=== PATIENT | female | born 2000 | race American Indian/Alaskan Native ===

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

== ENCOUNTER 2020-08-26 18:56 | Emergency (ER) | payer SELFPAY ==
[2020-08-26 19:44] VITALS: BP 112/77
--- NOTE | 2020-08-26 20:58 | XRay Report ---
RIGHT HAND 3 VIEWS 2004 INDICATION: right index and middle fingers injury COMPARISON: None available. FINDINGS: Negative study Signer Name: Paulino Perez MD Signed: 08/26/2020 8:54 PM Workstation Name: [id number]
[2020-08-26] MEDS ORDERED: IBUPROFEN 600 MG TAB PO ONE (21:54)
--- NOTE | 2020-08-26 21:59 | Emergency Department Report ---
ED Upper Extremity Inj HPI - General Chief Complaint: Extremity Injury, Upper Stated Complaint: FINGER INJURY Source: patient Mode of arrival: Ambulatory Limitations: No Limitations - History of Present Illness Initial Comments: Patient is a 20-year-old -Congolese female with no past medical history who presents to the ED with complaint of acute onset persistent severe right middle and ring finger pain with swelling after the right hand was hit by a door as it closed on the right hand about 4 hours ago. Patient states that she is unable to perform any active range of motion of the right middle and ring fingers because of pain. Patient denies numbness and tingling or weakness of right hand, dizziness, syncope, chest pain, shortness of breath, fall, nausea and vomiting or syncope. MD Complaint: Injury to:: right, hand (right), finger (middle finger) -: Sudden, hour(s) (4) Other Extremity Injury: Fingers: Right (middle finger; ring finger) Other Injuries: none Handedness: right Place: home Severity scale (0 -10): 7 Improves With: none Worsens With: movement of extremity Context: direct blow, injury Associated Symptoms: denies other symptoms. denies: weakness, numbness, neck pain, suspects foreign body, nausea/vomiting, heard/felt popping sensat - Related Data Previous Rx's Medication Instructions Recorded Last Taken Type Acetaminophen [Non-Aspirin Extra 500 mg PO Q6HR PRN #30 tablet 09/22/19 Unknown Rx Strength] Mandy Root [Mandy] 250 mg PO QID PRN #30 capsule 09/22/19 Unknown Rx Vit-Fe Fumar-FA [ 1 tab PO QDAY #30 tablet 09/22/19 Unknown Rx Vitamin] Ibuprofen [Motrin 800 MG tab] 800 mg PO Q8HR PRN #10 tablet 09/25/19 Unknown Rx Methylergonovine [Methergine] 0.2 mg PO Q8HR #6 tablet 09/25/19 Unknown Rx traMADoL [Ultram] 50 mg PO Q6HR PRN #10 tablet 09/25/19 Unknown Rx Bacitracin Zinc 1 applic TP TID #1 oint...g. 10/25/19 Unknown Rx Triamcinolone 0.5% [Kenalog 0.5% 1 applic TP TID #2 tube 10/25/19 Unknown Rx CREAM] Cyclobenzaprine HCl [Flexeril 5 MG 5 mg PO Q12H PRN #10 tab 08/26/20 Unknown Rx TAB] Ibuprofen [Motrin] 600 mg PO Q8H PRN #24 tablet 08/26/20 Unknown Rx Allergies Allergy/AdvReac Type Severity Reaction Status Date / Time cat dander Allergy Unknown Verified 05/07/20 12:41 dog dander Allergy Unknown Verified 05/07/20 12:41 soy Allergy Unknown Verified 05/07/20 12:41 strawberry Allergy Unknown Verified 05/07/20 12:41 ED Review of Systems ROS: Stated complaint: FINGER INJURY Other details as noted in HPI Constitutional: denies: chills, fever Eyes: denies: eye pain, eye discharge, vision change ENT: denies: ear pain, throat pain Respiratory: denies: cough, shortness of breath, wheezing Cardiovascular: denies: chest pain, palpitations Endocrine: no symptoms reported Gastrointestinal: denies: abdominal pain, nausea, diarrhea Genitourinary: denies: urgency, dysuria, discharge Musculoskeletal: arthralgia (Right hand, right middle and ring finger pain). denies: back pain, joint swelling, myalgia Skin: denies: rash, lesions Neurological: denies: headache, weakness, paresthesias Psychiatric: denies: anxiety, depression Hematological/Lymphatic: denies: easy bleeding, easy bruising ED Past Medical Hx - Past Medical History Previous Medical History?: Yes Hx Asthma: Yes Additional medical history: left knee pain, Eczema - Surgical History Past Surgical History?: No - Social History Smoking Status: Never Smoker Substance Use Type: None - Medications Home Medications: Home Medications Medication Instructions Recorded Confirmed Last Taken Type Acetaminophen [Non-Aspirin Extra 500 mg PO Q6HR PRN #30 tablet 09/22/19 Unknown Rx Strength] Mandy Root [Mandy] 250 mg PO QID PRN #30 capsule 09/22/19 Unknown Rx Vit-Fe Fumar-FA [ 1 tab PO QDAY #30 tablet 09/22/19 Unknown Rx Vitamin] Ibuprofen [Motrin 800 MG tab] 800 mg PO Q8HR PRN #10 tablet 09/25/19 Unknown Rx Methylergonovine [Methergine] 0.2 mg PO Q8HR #6 tablet 09/25/19 Unknown Rx traMADoL [Ultram] 50 mg PO Q6HR PRN #10 tablet 09/25/19 Unknown Rx Bacitracin Zinc 1 applic TP TID #1 oint...g. 10/25/19 Unknown Rx Triamcinolone 0.5% [Kenalog 0.5% 1 applic TP TID #2 tube 10/25/19 Unknown Rx CREAM] Cyclobenzaprine HCl [Flexeril 5 MG 5 mg PO Q12H PRN #10 tab 08/26/20 Unknown Rx TAB] Ibuprofen [Motrin] 600 mg PO Q8H PRN #24 tablet 08/26/20 Unknown Rx ED Physical Exam - General Limitations: No Limitations General appearance: alert, in no apparent distress - Head Head exam: Present: atraumatic, normocephalic, normal inspection - Eye Eye exam: Present: normal appearance, PERRL, EOMI Pupils: Present: normal accommodation - ENT ENT exam: Present: normal exam, normal orophraynx, mucous membranes moist, TM's normal bilaterally, normal external ear exam - Neck Neck exam: Present: normal inspection, full ROM - Respiratory Respiratory exam: Present: normal lung sounds bilaterally. Absent: respiratory distress, wheezes, rales, stridor, chest wall tenderness, accessory muscle use - Cardiovascular Cardiovascular Exam: Present: regular rate, normal rhythm, normal heart sounds. Absent: systolic murmur, diastolic murmur, rubs, gallop - GI/Abdominal GI/Abdominal exam: Present: soft, normal bowel sounds. Absent: tenderness, guarding, rebound, hyperactive bowel sounds, hypoactive bowel sounds - Extremities Exam Extremities exam: Present: normal inspection, full ROM, tenderness (Palpable distal right middle and fourth finger tenderness with mild ecchymosis of the right middle finger nailbed and mild swelling), normal capillary refill, joint swelling. Absent: calf tenderness - Back Exam Back exam: Present: normal inspection, full ROM. Absent: tenderness, CVA tenderness (R), CVA tenderness (L), muscle spasm, paraspinal tenderness - Neurological Exam Neurological exam: Present: alert, oriented X3, CN II-XII intact, normal gait, reflexes normal - Psychiatric Psychiatric exam: Present: normal affect, normal mood - Skin Skin exam: Present: warm, dry, intact, normal color. Absent: rash ED Course Vital Signs 08/26/20 19:34 Temperature 99.0 F Pulse Rate 76 Respiratory 18 Rate Blood Pressure 112/77 O2 Sat by Pulse 100 Oximetry ED Medical Decision Making - Radiology Data Radiology results: report reviewed, image reviewed Findings [facility], [place] [address] [place] [address] XRay Report Signed Patient: JOS DE LEON MR#: [id number] : 2000 Acct:[id number] Age/Sex: 20 / F ADM Date: 08/26/20 Loc: ED Attending Dr: Ordering Physician: MARGY DYSON MD Date of Service: 08/26/20 Procedure(s): XR hand 3+V RT Accession Number(s): [id number] cc: MARGY DYSON MD Fluoro Time In Minutes: RIGHT HAND 3 VIEWS 2004 INDICATION: right index and middle fingers injury COMPARISON: None available. FINDINGS: Negative study Signer Name: Paulino Perez MD Signed: 08/26/2020 8:54 PM Workstation Name: [id number] Transcribed By: GJ Dictated By: Paulino Perez MD Electronically Authenticated By: Paulino Perez MD Signed Date/Time: 08/26/202053 DD/ 52 TD/TT: - Medical Decision Making This is a 20-year-old -Congolese female with no past medical history who presents to the ED with complaint of acute onset persistent severe right middle and ring finger pain with swelling after the right hand was hit by a door as it closed on the right hand about 4 hours ago. Patient states that she is unable to perform any active range of motion of the right middle and ring fingers because of pain. In the ED, patient is alert and oriented x3 and is not in distress. Patient was treated for pain in the ED and right hand x-ray showed no acute fractures or subluxations of the right hand, right middle or right ring fingers. The right middle finger was splinted with a finger splint and the patient was discharged home on pain medications and advised to follow-up with her primary care physician in 5 to 7 days for reevaluation or return to the ED immediately if symptoms get worse. - Differential Diagnosis Hand fracture; fingers fracture; hand contusion; finger sprain; Critical care attestation.: If time is entered above; I have spent that time in minutes in the direct care of this critically ill patient, excluding procedure time. ED Disposition Clinical Impression: Contusion of right hand including fingers Qualifiers: Encounter type: initial encounter Qualified Code(s): S60.221A - Contusion of right hand, initial encounter; S60.00XA - Contusion of unspecified finger without damage to nail, initial encounter Sprain of interphalangeal joint of right middle finger Qualifiers: Encounter type: initial encounter Qualified Code(s): S63.632A - Sprain of interphalangeal joint of right middle finger, initial encounter Sprain of right ring finger Qualifiers: Encounter type: initial encounter Sprain of finger site: interphalangeal joint Qualified Code(s): S63.634A - Sprain of interphalangeal joint of right ring finger, initial encounter Disposition: TO HOME OR SELFCARE Is pt being admited?: No Does the pt Need Aspirin: No Condition: Stable Instructions: Finger Sprain (ED), Hand Sprain (ED), Contusion in Adults (ED) Additional Instructions: The right hand x-ray shows no acute fractures or subluxations. Take medication with food, drink plenty of fluids and follow-up with your primary care physician in 7 to 10 days for reevaluation. Return to the ED immediately if symptoms get worse. Prescriptions: Cyclobenzaprine HCl [Flexeril 5 MG TAB] 5 mg PO Q12H PRN #10 tab PRN Reason: Muscle Spasm Ibuprofen [Motrin] 600 mg PO Q8H PRN #24 tablet PRN Reason: Pain Referrals: [facility] [Provider Group] - 3-5 Days Time of Disposition: 22:01 Print Language: NORTH KOREAN
== END 2020-08-26 22:45 | disposition home or self-care (01) ==
LOC: ED 18:56
DX: S60.221A Contusion of right hand, initial encounter (principal); S63.632A Sprain of interphalangeal joint of right middle finger, initial encounter; S63.634A Sprain of interphalangeal joint of right ring finger, initial encounter; J45.909 Unspecified asthma, uncomplicated; Z79.899 Other long term (current) drug therapy; Z91.018 Allergy to other foods; Z91.048 Other nonmedicinal substance allergy status; W23.0XXA Caught, crushed, jammed, or pinched between moving objects, initial encounter; Y93.89 Activity, other specified; Y92.89 Other specified places as the place of occurrence of the external cause; Y99.8 Other external cause status

== ENCOUNTER 2020-10-31 18:28 | Emergency (ER) | payer SELFPAY ==
--- NOTE | 2020-10-31 19:23 | Event Note ---
ED Screening Note ED Screening Note: abd pain for a week +nausea no v/d no dysuria normal BM today no fever no blood in stool PMHx asthma no allergies to meds LNMP: currently on depo, has not missed any injections This initial assessment/diagnostic orders/clinical plan/treatment(s) is/are subject to change based on patients health status, clinical progression and re- assessment by fellow clinical providers in the ED. Further treatment and workup at subsequent clinical providers discretion. Patient/guardian urged not to elope from the ED as their condition may be serious if not clinically assessed and managed. Initial orders include: labs, ua, urine preg
[2020-10-31 19:35] VITALS: BP 118/78
[2020-10-31 19:55] LABS: Basophils % (Auto) 0.4 % (0.0-1.8); Eosinophils # (Auto) 0.1 K/mm3 (0.0-0.4); Eosinophils % (Auto) 1.9 % (0.0-4.3); Hematocrit 41.9 % (30.3-42.9); Hemoglobin 13.7 gm/dl (10.1-14.3); Lymphocytes # (Auto) 2.6 K/mm3 (1.2-5.4); Lymphocytes % (Auto) 34.6 % (13.4-35.0); Mean Corpuscular HGB Conc 33 % (30-34); Mean Corpuscular Volume 85 fl (79-97); Monocytes # (Auto) 0.6 K/mm3 (0.0-0.8); Monocytes % (Auto) 7.6 % (0.0-7.3); Platelet Count 162 K/mm3 (140-440); Red Blood Count 4.93 M/mm3 (3.65-5.03); Red Cell Distribution Width 14.2 % (13.2-15.2)
[2020-10-31 20:24] LABS: Alanine Aminotransferase 12 units/L (7-56); Albumin 4.5 g/dL (3.9-5); BUN/Creatinine Ratio 16; Blood Urea Nitrogen 13 mg/dL (7-17); Calcium 9.7 mg/dL (8.4-10.2); Hemolysis Index 17
[2020-10-31] MEDS ORDERED: SODIUM CHLORIDE 0.9% 1000 ML 1,000 ML IV ONE (21:39)
[2020-10-31] MEDS ORDERED: MORPHINE 2 MG/1 ML INJ IV ONE (21:39)
[2020-10-31] MEDS ORDERED: FAMOTIDINE 20 MG/2 ML INJ IV ONE (21:39)
[2020-10-31] MEDS ORDERED: ONDANSETRON 4 MG/2 ML INJ IV ONE (21:39)
[2020-10-31 22:21] LABS: Bacteria,Urine 1+ /HPF (Negative); Bilirubin,Urine NEG (Negative); Blood,Urine NEG (Negative); Color,Urine Yellow (Yellow); Mucus,Urine FEW /HPF; Protein,Urine <15 mg/dL mg/dL (Negative)
[2020-10-31 22:31] LABS: HCG Qualitative,Urine Negative (Negative)
--- NOTE | 2020-10-31 22:51 | Emergency Department Report ---
ED Abdominal Pain HPI - General Chief Complaint: Abdominal Pain Stated Complaint: STOMACH PAIN Time Seen by Provider: 10/31/20 19:21 Source: patient Mode of arrival: Ambulatory Limitations: No Limitations - History of Present Illness Initial Comments: Patient is a A1 20-year-old -Aust[place] female with history of asthma presents to the ED with complaint of acute onset persistent diffuse abdominal pain intermittently with nausea and vomiting, for the last 1 week. Patient states that in the last 2 days the pain has worsened. Patient describes the pain as crampy sharp and intermittent. Patient denies dysuria, urinary frequency and urgency, fever, chills, diarrhea, dizziness, syncope, vaginal bleeding, vaginal discharge, chest pain, shortness of breath, sore throat or headache or hematochezia. MD Complaint: abdominal pain, other (nausea and vomiting) -: Sudden, week(s) (1) Location: diffuse Radiation: none Migration to: no migration Severity scale (0 -10): 6 Quality: cramping, aching Improves With: nothing Worsens With: nothing Associated Symptoms: denies other symptoms, nausea, vomiting, anorexia. denies: diarrhea, fever, chills, dysuria, hematemesis, hematochezia, melena, syncope, other - Related Data LMP (females 10-50): unknown Previous Rx's Medication Instructions Recorded Last Taken Type Acetaminophen [Non-Aspirin Extra 500 mg PO Q6HR PRN #30 tablet 09/22/19 Unknown Rx Strength] Mandy Root [Mandy] 250 mg PO QID PRN #30 capsule 09/22/19 Unknown Rx Vit-Fe Fumar-FA [ 1 tab PO QDAY #30 tablet 09/22/19 Unknown Rx Vitamin] Ibuprofen [Motrin 800 MG tab] 800 mg PO Q8HR PRN #10 tablet 09/25/19 Unknown Rx Methylergonovine [Methergine] 0.2 mg PO Q8HR #6 tablet 09/25/19 Unknown Rx traMADoL [Ultram] 50 mg PO Q6HR PRN #10 tablet 09/25/19 Unknown Rx Bacitracin Zinc 1 applic TP TID #1 oint...g. 10/25/19 Unknown Rx Triamcinolone 0.5% [Kenalog 0.5% 1 applic TP TID #2 tube 10/25/19 Unknown Rx CREAM] Cyclobenzaprine HCl [Flexeril 5 MG 5 mg PO Q12H PRN #10 tab 08/26/20 Unknown Rx TAB] Ibuprofen [Motrin] 600 mg PO Q8H PRN #24 tablet 08/26/20 Unknown Rx Dicyclomine [Bentyl] 20 mg PO Q6H PRN #30 tablet 10/31/20 Unknown Rx Famotidine [Pepcid] 20 mg PO BID #24 tablet 10/31/20 Unknown Rx Ondansetron [Zofran Odt] 4 mg PO Q6HR PRN #15 tab.rapdis 10/31/20 Unknown Rx cephALEXin [Keflex] 500 mg PO Q6HR #30 capsule 10/31/20 Unknown Rx Allergies Allergy/AdvReac Type Severity Reaction Status Date / Time cat dander Allergy Unknown Verified 05/07/20 12:41 dog dander Allergy Unknown Verified 05/07/20 12:41 soy Allergy Unknown Verified 05/07/20 12:41 strawberry Allergy Unknown Verified 05/07/20 12:41 ED Review of Systems ROS: Stated complaint: STOMACH PAIN Other details as noted in HPI Constitutional: denies: chills, fever Eyes: denies: eye pain, eye discharge, vision change ENT: denies: ear pain, throat pain Respiratory: cough. denies: shortness of breath, wheezing Cardiovascular: denies: chest pain, palpitations Endocrine: no symptoms reported Gastrointestinal: abdominal pain, nausea, vomiting. denies: diarrhea Genitourinary: denies: urgency, dysuria, discharge Musculoskeletal: denies: back pain, joint swelling, arthralgia Skin: denies: rash, lesions Neurological: denies: headache, weakness, paresthesias Psychiatric: denies: anxiety, depression Hematological/Lymphatic: denies: easy bleeding, easy bruising ED Past Medical Hx - Past Medical History Previous Medical History?: Yes Hx Asthma: Yes Additional medical history: left knee pain, Eczema - Surgical History Past Surgical History?: No - Social History Smoking Status: Never Smoker Substance Use Type: None - Medications Home Medications: Home Medications Medication Instructions Recorded Confirmed Last Taken Type Acetaminophen [Non-Aspirin Extra 500 mg PO Q6HR PRN #30 tablet 09/22/19 Unknown Rx Strength] Mandy Root [Mandy] 250 mg PO QID PRN #30 capsule 09/22/19 Unknown Rx Vit-Fe Fumar-FA [ 1 tab PO QDAY #30 tablet 09/22/19 Unknown Rx Vitamin] Ibuprofen [Motrin 800 MG tab] 800 mg PO Q8HR PRN #10 tablet 09/25/19 Unknown Rx Methylergonovine [Methergine] 0.2 mg PO Q8HR #6 tablet 09/25/19 Unknown Rx traMADoL [Ultram] 50 mg PO Q6HR PRN #10 tablet 09/25/19 Unknown Rx Bacitracin Zinc 1 applic TP TID #1 oint...g. 10/25/19 Unknown Rx Triamcinolone 0.5% [Kenalog 0.5% 1 applic TP TID #2 tube 10/25/19 Unknown Rx CREAM] Cyclobenzaprine HCl [Flexeril 5 MG 5 mg PO Q12H PRN #10 tab 08/26/20 Unknown Rx TAB] Ibuprofen [Motrin] 600 mg PO Q8H PRN #24 tablet 08/26/20 Unknown Rx Dicyclomine [Bentyl] 20 mg PO Q6H PRN #30 tablet 10/31/20 Unknown Rx Famotidine [Pepcid] 20 mg PO BID #24 tablet 10/31/20 Unknown Rx Ondansetron [Zofran Odt] 4 mg PO Q6HR PRN #15 tab.rapdis 10/31/20 Unknown Rx cephALEXin [Keflex] 500 mg PO Q6HR #30 capsule 10/31/20 Unknown Rx ED Physical Exam - General Limitations: No Limitations General appearance: alert, in no apparent distress - Head Head exam: Present: atraumatic, normocephalic, normal inspection - Eye Eye exam: Present: normal appearance, PERRL, EOMI Pupils: Present: normal accommodation - ENT ENT exam: Present: normal exam, normal orophraynx, mucous membranes moist, TM's normal bilaterally, normal external ear exam - Neck Neck exam: Present: normal inspection, full ROM - Respiratory Respiratory exam: Present: normal lung sounds bilaterally. Absent: respiratory distress, wheezes, rales, rhonchi, chest wall tenderness, decreased breath sounds - Cardiovascular Cardiovascular Exam: Present: regular rate, normal rhythm, normal heart sounds. Absent: systolic murmur, diastolic murmur, rubs, gallop - GI/Abdominal GI/Abdominal exam: Present: soft, tenderness (Palpable mild diffuse abdominal tenderness), normal bowel sounds. Absent: guarding, rebound, hyperactive bowel sounds, organomegaly, mass - Bi-manual exam: Present: other (Pelvic exam deferred, patient declined) - Extremities Exam Extremities exam: Present: normal inspection, full ROM, normal capillary refill - Back Exam Back exam: Present: normal inspection, full ROM. Absent: tenderness, CVA tenderness (R), CVA tenderness (L), muscle spasm, paraspinal tenderness, vertebral tenderness - Neurological Exam Neurological exam: Present: alert, oriented X3, CN II-XII intact, normal gait, reflexes normal - Psychiatric Psychiatric exam: Present: normal affect, normal mood - Skin Skin exam: Present: warm, dry, intact, normal color. Absent: rash ED Course Vital Signs 10/31/20 19:00 Temperature 98.2 F Pulse Rate 67 Respiratory 20 Rate Blood Pressure 118/78 O2 Sat by Pulse 100 Oximetry ED Medical Decision Making - Lab Data Result diagrams: 10/31/20 19:39 10/31/20 19:39 - Medical Decision Making This is a A1 20-year-old -[place] female with history of asthma presents to the ED with complaint of acute onset persistent diffuse abdominal pain intermittently with nausea and vomiting, for the last 1 week. Patient states that in the last 2 days the pain has worsened. Patient describes the pain as crampy sharp and intermittent. In the ED, patient is alert and oriented x3 and is not in distress. Lab test results were reviewed and are all nonactionable except for significant urinary tract infection in urinalysis. Patient is hemodynamically stable. Patient declined any imaging tests because of fear of needles and even declined any injection in the ED. Patient therefore declined abdomen pelvis CT scan with contrast and opted to sign out AMA from the ED. Patient was however given a prescriptions for pain medication and antibiotics for her UTI. Patient was advised to return to the ED immediately if symptoms get worse, otherwise follow-up with her primary care physician in 3 to 5 days for reevaluation. - Differential Diagnosis Gastroenteritis; UTI; Appendicitis; Ovarian cyst; Gallstones; Gastritis Critical care attestation.: If time is entered above; I have spent that time in minutes in the direct care of this critically ill patient, excluding procedure time. ED Disposition Clinical Impression: Acute urinary tract infection Abdominal pain Qualifiers: Abdominal location: generalized Qualified Code(s): R10.84 - Generalized abdominal pain Nausea & vomiting Qualifiers: Vomiting type: unspecified Vomiting Intractability: unspecified Qualified Code(s): R11.2 - Nausea with vomiting, unspecified Disposition: DC-07 LEFT AGAINST MED ADVICE Is pt being admited?: No Does the pt Need Aspirin: No Condition: Undetermined Instructions: Abdominal Pain (ED), Abdominal Pain, Adult, [id number], Nausea and Vomiting, Adult, [id number], Urinary Tract Infection, Adult Additional Instructions: Lab test results show acute urinary tract infection. Therefore take medication as advised, drink plenty of fluids and follow-up with your primary care physician in 3 to 5 days for reevaluation. Return to the ED immediately if symptoms get worse. Prescriptions: Dicyclomine [Bentyl] 20 mg PO Q6H PRN #30 tablet PRN Reason: Abdominal pain cephALEXin [Keflex] 500 mg PO Q6HR #30 capsule Famotidine [Pepcid] 20 mg PO BID #24 tablet Ondansetron [Zofran Odt] 4 mg PO Q6HR PRN #15 tab.rapdis PRN Reason: Nausea Referrals: [facility] [Provider Group] - 3-5 Days Time of Disposition: 22:52 Print Language: ROMANIAN
== END 2020-10-31 23:07 | disposition left against medical advice (07) ==
LOC: ED 18:28
DX: N39.0 Urinary tract infection, site not specified (principal)
CPT/HCPCS: 36415; 80053; 81001; 81025; 83690; 85025; 87086; 99283; J2270; J2405; J7030

== ENCOUNTER 2020-11-16 00:08 | Emergency (ER) | payer SELFPAY ==
[2020-11-16] MEDS ORDERED: RABIES IMMUNE GLOBULIN P/F 300 UNIT/ML INJ 5 ML IM ONE (03:42)
[2020-11-16] MEDS ORDERED: RABIES VACCINE, HUMAN DIPLOID/PF 2.5 UNIT/ML VIAL IM ONE (03:42)
[2020-11-16] MEDS ORDERED: HYDROcodone/ACETAMINOPHEN 10-325MG TAB PO ONE (03:43)
[2020-11-16] MEDS ORDERED: DIPHtheria,PERTUSSIS(ACELL),TETANUS VACCINE/PF 0.5 ML VIAL IM ONE (03:43)
--- NOTE | 2020-11-16 04:44 | XRay Report ---
Left femur-4 views INDICATION: dog bite r/o foreign body. COMPARISON: None. IMPRESSION: Minimal soft tissue swelling overlying left hip with no acute fracture. Normal alignmen t. Signer Name: Fred Oro MD Signed: 11/16/2020 4:40 AM Workstation Name: [id number]
--- NOTE | 2020-11-16 05:46 | Emergency Department Report ---
ED Animal Bite HPI - General Chief Complaint: Animal Bite Stated Complaint: DOG BITE Time Seen by Provider: 11/16/20 03:30 Source: patient Mode of arrival: Ambulatory Limitations: No Limitations - History of Present Illness Initial Comments: This is a 20-year-old female brought by mother nontoxic, well nourished in appearance, no acute signs of distress presents to the ED with c/o of dog bite to left thigh that occurred this morning. Patient does know the dog. Patient denies any head trauma or any other trauma. PAtient denies any information on v accines. Patient states unknown last tetanus. Patient denies any fever, chills, nausea, vomiting, headache, stiff neck. Patient denies any allergies or significant past medical history. Patient stated animal control are notified. MD Complaint: animal bite -: This morning Left: Leg Animal: dog Animal Control Notified: Yes Mechanism: bite Severity scale (0 -10): 8 Context: unprovoked Associated Symptoms: none. denies: erythema, discharge from wound, bleeding, fever, chills, rash, loss of consciousness, cough, headache, diaphoresis, shortness of breath - Related Data Patient Tetanus UTD: No Previous Rx's Medication Instructions Recorded Last Taken Type Acetaminophen [Non-Aspirin Extra 500 mg PO Q6HR PRN #30 tablet 09/22/19 Unknown Rx Strength] Mandy Root [Mandy] 250 mg PO QID PRN #30 capsule 09/22/19 Unknown Rx Vit-Fe Fumar-FA [ 1 tab PO QDAY #30 tablet 09/22/19 Unknown Rx Vitamin] Ibuprofen [Motrin 800 MG tab] 800 mg PO Q8HR PRN #10 tablet 09/25/19 Unknown Rx Methylergonovine [Methergine] 0.2 mg PO Q8HR #6 tablet 09/25/19 Unknown Rx traMADoL [Ultram] 50 mg PO Q6HR PRN #10 tablet 09/25/19 Unknown Rx Bacitracin Zinc 1 applic TP TID #1 oint...g. 10/25/19 Unknown Rx Triamcinolone 0.5% [Kenalog 0.5% 1 applic TP TID #2 tube 10/25/19 Unknown Rx CREAM] Cyclobenzaprine HCl [Flexeril 5 MG 5 mg PO Q12H PRN #10 tab 08/26/20 Unknown Rx TAB] Ibuprofen [Motrin] 600 mg PO Q8H PRN #24 tablet 08/26/20 Unknown Rx Dicyclomine [Bentyl] 20 mg PO Q6H PRN #30 tablet 10/31/20 Unknown Rx Famotidine [Pepcid] 20 mg PO BID #24 tablet 10/31/20 Unknown Rx Ondansetron [Zofran Odt] 4 mg PO Q6HR PRN #15 tab.rapdis 10/31/20 Unknown Rx cephALEXin [Keflex] 500 mg PO Q6HR #30 capsule 10/31/20 Unknown Rx Amoxicillin/K Clav Tab [Augmentin 1 tab PO Q12HR #20 tab 11/16/20 Unknown Rx 875 mg] Naproxen 500 mg PO Q12H PRN #12 tablet 11/16/20 Unknown Rx Allergies Allergy/AdvReac Type Severity Reaction Status Date / Time cat dander Allergy Unknown Verified 05/07/20 12:41 dog dander Allergy Unknown Verified 05/07/20 12:41 soy Allergy Unknown Verified 05/07/20 12:41 strawberry Allergy Unknown Verified 05/07/20 12:41 ED Review of Systems ROS: Stated complaint: DOG BITE Other details as noted in HPI Comment: All other systems reviewed and negative Constitutional: denies: chills, fever Eyes: denies: eye pain, eye discharge, vision change ENT: denies: ear pain, throat pain Respiratory: denies: cough, shortness of breath, wheezing Cardiovascular: denies: chest pain, palpitations Endocrine: no symptoms reported Gastrointestinal: denies: abdominal pain, nausea, diarrhea Genitourinary: denies: urgency, dysuria, discharge Musculoskeletal: denies: back pain, joint swelling, arthralgia Skin: denies: rash, lesions Neurological: denies: headache, weakness, paresthesias Psychiatric: denies: anxiety, depression Hematological/Lymphatic: denies: easy bleeding, easy bruising ED Past Medical Hx - Past Medical History Previous Medical History?: Yes Hx Asthma: Yes Additional medical history: left knee pain, Eczema - Surgical History Past Surgical History?: No - Social History Smoking Status: Never Smoker Substance Use Type: None - Medications Home Medications: Home Medications Medication Instructions Recorded Confirmed Last Taken Type Acetaminophen [Non-Aspirin Extra 500 mg PO Q6HR PRN #30 tablet 09/22/19 Unknown Rx Strength] Mandy Root [Mandy] 250 mg PO QID PRN #30 capsule 09/22/19 Unknown Rx Vit-Fe Fumar-FA [ 1 tab PO QDAY #30 tablet 09/22/19 Unknown Rx Vitamin] Ibuprofen [Motrin 800 MG tab] 800 mg PO Q8HR PRN #10 tablet 09/25/19 Unknown Rx Methylergonovine [Methergine] 0.2 mg PO Q8HR #6 tablet 09/25/19 Unknown Rx traMADoL [Ultram] 50 mg PO Q6HR PRN #10 tablet 09/25/19 Unknown Rx Bacitracin Zinc 1 applic TP TID #1 oint...g. 10/25/19 Unknown Rx Triamcinolone 0.5% [Kenalog 0.5% 1 applic TP TID #2 tube 10/25/19 Unknown Rx CREAM] Cyclobenzaprine HCl [Flexeril 5 MG 5 mg PO Q12H PRN #10 tab 08/26/20 Unknown Rx TAB] Ibuprofen [Motrin] 600 mg PO Q8H PRN #24 tablet 08/26/20 Unknown Rx Dicyclomine [Bentyl] 20 mg PO Q6H PRN #30 tablet 10/31/20 Unknown Rx Famotidine [Pepcid] 20 mg PO BID #24 tablet 10/31/20 Unknown Rx Ondansetron [Zofran Odt] 4 mg PO Q6HR PRN #15 tab.rapdis 10/31/20 Unknown Rx cephALEXin [Keflex] 500 mg PO Q6HR #30 capsule 10/31/20 Unknown Rx Amoxicillin/K Clav Tab [Augmentin 1 tab PO Q12HR #20 tab 11/16/20 Unknown Rx 875 mg] Naproxen 500 mg PO Q12H PRN #12 tablet 11/16/20 Unknown Rx ED Physical Exam - General Limitations: No Limitations General appearance: alert, in no apparent distress - Head Head exam: Present: atraumatic, normocephalic - Eye Eye exam: Present: normal appearance - Neck Neck exam: Present: normal inspection, full ROM - Respiratory Respiratory exam: Absent: respiratory distress - Cardiovascular Cardiovascular Exam: Present: regular rate - Extremities Exam Extremities exam: Present: normal inspection, full ROM, tenderness, normal capillary refill. Absent: joint swelling, calf tenderness - Back Exam Back exam: Present: normal inspection, full ROM - Neurological Exam Neurological exam: Present: alert, oriented X3, normal gait - Psychiatric Psychiatric exam: Present: normal affect, normal mood - Skin Skin exam: Present: warm, dry, intact, normal color. Absent: rash - Expanded Skin Exam Expanded 1 - 2 small bite mccarthy here with no foreign body noted. bleeding under control. ED Course Vital Signs 11/16/20 11/16/20 01:00 04:59 Temperature 97.8 F Pulse Rate 86 Respiratory 18 20 Rate Blood Pressure 116/69 O2 Sat by Pulse 100 Oximetry - Reevaluation(s) Reevaluation #1: 11/16/20 05:43 Patient is speaking in full sentences with no signs of distress noted. Critical care attestation.: If time is entered above; I have spent that time in minutes in the direct care of this critically ill patient, excluding procedure time. ED Disposition Clinical Impression: Dog bite Disposition: DC-01 TO HOME OR SELFCARE Is pt being admited?: No Does the pt Need Aspirin: No Condition: Stable Instructions: Animal Bite, Adult, [id number], Wound Care, Adult Additional Instructions: Follow-up with a primary care doctor in 3-5 days or if symptoms worsen and continue return to emergency room as soon as possible. You must complete the rabies vaccines. Your rabies vaccine doses are on 11/19/2020, 11/23/2020, and 11/30/2019. Prescriptions: Amoxicillin/K Clav Tab [Augmentin 875 mg] 1 tab PO Q12HR #20 tab Naproxen 500 mg PO Q12H PRN #12 tablet PRN Reason: Pain , Severe (7-10) Referrals: PRIMARY CARE, [Primary Care Provider] - 3-5 Days LEO FLORES MD [Staff Physician] - 3-5 Days Forms: Work/School Release Form(ED) Time of Disposition: 05:48 ED Medical Decision Making - Radiology Data Referring Physician: JANNET URIARTE Patient Name: JOS DE LEON Date of : 2000 Sex: Female Report Date: 2020-11-16 Report Status: Finalized [facility] [address] [place] [address] XRay Report Signed Patient: JOS DE LEON MR#: [id number] : 2000 Acct:[id number] Age/Sex: 20 / F ADM Date: 11/16/20 Loc: ED Attending Dr: Ordering Physician: JANNET URIARTE NP Date of Service: 11/16/20 Procedure(s): XR femur 2+V LT Accession Number(s): [id number] cc: JANNET URIARTE NP Fluoro Time In Minutes: Left femur-4 views INDICATION: dog bite r/o foreign body. COMPARISON: None. IMPRESSION: Minimal soft tissue swelling overlying left hip with no acute fracture. Normal alignment. Signer Name: Fred Oro MD Signed: 11/16/2020 4:40 AM Workstation Name: [id number] Transcribed By: JW Dictated By: Fred Oro MD Electronically Authenticated By: Fred Oro MD Signed Date/Time: 11/16/20439 DD/ TD/TT: - Medical Decision Making This is a 20-year-old female that presents with dog bite. Patient is stable was examined by me. Patient received immunoglobulin and rabies vaccine. Patient was instructed to receive the full rabies immunizations on days number 3, 7, and 14. Patient is discharged with Augmentin. The bite wound has been cleaned with soap and water and a sterile dressing has been applied. Patient was educated on proper wound care. Patient was instructed to Follow-up with a primary care doctor in 3-5 days or if symptoms worsen and continue return to emergency room as soon as possible. At time of discharge, the patient does not seem toxic or ill in appearance. No acute signs of distress noted. Patient agrees to discharge treatment plan of care. No further questions noted by the patient.
[2020-11-16 06:08] VITALS: BP 122/70
== END 2020-11-16 06:12 | disposition home or self-care (01) ==
LOC: ED 00:08
DX: S70.372A Other superficial bite of left thigh, initial encounter (principal); J45.909 Unspecified asthma, uncomplicated; Z79.899 Other long term (current) drug therapy; Z91.048 Other nonmedicinal substance allergy status; W54.0XXA Bitten by dog, initial encounter; Y93.89 Activity, other specified; Y92.89 Other specified places as the place of occurrence of the external cause; Y99.8 Other external cause status
CPT/HCPCS: 90375; 90471; 90472; 90675; 90715; 96372; 99283

== ENCOUNTER 2022-02-03 18:50 | Outpatient (CLI) | payer MEDICAID ==
[2022-02-03] MEDS ORDERED: LACTATED RINGERS 500 ML IV ONE (19:24)
[2022-02-03 19:36] VITALS: BP 118/67
[2022-02-03 20:15] LABS: Bacteria,Urine 2+ /HPF (Negative); Bilirubin,Urine NEG (Negative); Blood,Urine NEG (Negative); Color,Urine Colorless (Yellow); Mucus,Urine FEW /HPF; Protein,Urine <15 mg/dL mg/dL (Negative); Urobilinogen,Urine < 2.0 mg/dL (<2.0)
--- NOTE | 2022-02-03 22:11 | Ultrasound Report ---
ULTRASOUND OBSTETRIC LIMITED INDICATION / CLINICAL INFORMATION: R.O ABRUPTION. Clinical Gestational Age (GA) in weeks, days: 22 weeks 0 days TECHNIQUE: Transabdominal. COMPARISON: None available. FINDINGS: Single live intrauterine . HEART RATE (beats per minute): 166 PRESENTATION: Breech. ADDITIONAL FINDINGS: Right lateral placenta is free of the os. There is no placental lifting or separ ation. No retroplacental hematoma is identified. IMPRESSION: Single live intrauterine without significant abnormality. No evidence of placental abruptio n. Signer Name: Eh Leung MD Signed: 02/03/2022 10:06 PM Workstation Name: [id number]
== END 2022-02-03 21:54 | disposition home or self-care (01) ==
LOC: TRG 18:50 → APU 18:55 → TRG 21:54
PROVIDERS: ATTEND Obstetrics & Gynecology
DX: Z34.92 Encounter for supervision of normal pregnancy, unspecified, second trimester (principal); Z3A.22 22 weeks gestation of pregnancy
CPT/HCPCS: 76815; 81001

== ENCOUNTER 2022-04-18 14:06 | Outpatient (CLI) | payer MEDICAID ==
[2022-04-18 15:14] VITALS: BP 117/67
[2022-04-18 15:37] LABS: Bilirubin,Urine NEG (Negative); Blood,Urine NEG (Negative); Color,Urine Yellow (Yellow); Mucus,Urine 1+ /HPF; Protein,Urine <15 mg/dL mg/dL (Negative); RBC,Urine < 1.0 /HPF (0.0-6.0); WBC,Urine < 1.0 /HPF (0.0-6.0)
[2022-04-18] MEDS ORDERED: TERBUTALINE 1 MG/1 ML INJ SUB-Q PRN (15:54)
[2022-04-18] MEDS ORDERED: LACTATED RINGERS 1,000 ML IV ONE (16:00)
[2022-04-18] MEDS ORDERED: LACTATED RINGERS 1,000 ML IV SCH (16:45)
== END 2022-04-18 18:32 | disposition home or self-care (01) ==
LOC: TRG 14:06 → APU 14:07 → TRG 18:32
PROVIDERS: ATTEND Obstetrics & Gynecology
DX: O26.893 Other specified pregnancy related conditions, third trimester (principal); R10.9 Unspecified abdominal pain; O99.513 Diseases of the respiratory system complicating pregnancy, third trimester; J45.909 Unspecified asthma, uncomplicated; Z3A.32 32 weeks gestation of pregnancy
CPT/HCPCS: 36415; 81001; 82731; 96360; 96361; 96372; J3105; J7120

== ENCOUNTER 2022-04-23 10:25 | Outpatient (CLI) | payer MEDICAID ==
[2022-04-23 11:36] VITALS: BP 109/58
[2022-04-23 14:00] LABS: Bacteria,Urine 3+ /HPF (Negative); Bilirubin,Urine NEG (Negative); Blood,Urine NEG (Negative); Color,Urine Amber (Yellow); Mucus,Urine 3+ /HPF; Sperm,Urine FEW /HPF (NP)
[2022-04-23] MEDS ORDERED: LACTATED RINGERS 1,000 ML IV ONE (14:04)
[2022-04-23] MEDS ORDERED: NIFEdipine*For Tocolysis only* 10 MG CAPSULE PO ONE (14:22)
[2022-04-23] MEDS ORDERED: BETAMET ACET/BETAMET NA PH 6 MG/ML INJ 5 ML MDV IM SCH (15:00)
== END 2022-04-23 15:45 | disposition home or self-care (01) ==
LOC: TRG 10:25 → APU 10:26 → TRG 15:45
PROVIDERS: ATTEND Obstetrics & Gynecology
DX: O62.9 Abnormality of forces of labor, unspecified (principal); O99.513 Diseases of the respiratory system complicating pregnancy, third trimester; J45.909 Unspecified asthma, uncomplicated; Z3A.33 33 weeks gestation of pregnancy
CPT/HCPCS: 59025; 81001; 87086; 96361; 96365; 96372; J0690; J0702; J7120; 96360

== ENCOUNTER 2022-04-24 14:26 | Outpatient (CLI) | payer MEDICAID ==
[2022-04-24 14:41] VITALS: BP 122/62
[2022-04-24] MEDS ORDERED: BETAMET ACET/BETAMET NA PH 6 MG/ML INJ 5 ML MDV IM SCH (15:00)
== END 2022-04-24 15:23 | disposition home or self-care (01) ==
LOC: TRG 14:26 → APU 14:28 → TRG 15:23
PROVIDERS: ATTEND Obstetrics & Gynecology
DX: Z34.93 Encounter for supervision of normal pregnancy, unspecified, third trimester (principal); Z3A.33 33 weeks gestation of pregnancy
CPT/HCPCS: 59025; 96372; J0702

== ENCOUNTER 2022-05-01 08:45 | Outpatient (CLI) | payer MEDICAID ==
[2022-05-01] MEDS ORDERED: LACTATED RINGERS 500 ML IV ONE (09:07)
[2022-05-01 09:20] VITALS: BP 127/76
[2022-05-01 10:33] LABS: Bacteria,Urine 1+ /HPF (Negative); Bilirubin,Urine NEG (Negative); Blood,Urine NEG (Negative); Color,Urine Yellow (Yellow); Mucus,Urine FEW /HPF; Protein,Urine <15 mg/dL mg/dL (Negative); Urobilinogen,Urine < 2.0 mg/dL (<2.0)
== END 2022-05-01 09:49 | disposition home or self-care (01) ==
LOC: TRG 08:45 → APU 08:47 → TRG 09:49
PROVIDERS: ATTEND Obstetrics & Gynecology
DX: O47.03 False labor before 37 completed weeks of gestation, third trimester (principal); Z3A.34 34 weeks gestation of pregnancy
CPT/HCPCS: 81001

== ENCOUNTER 2022-05-15 13:59 | Outpatient (CLI) | payer MEDICAID ==
[2022-05-15] MEDS ORDERED: ACETAMINOPHEN 325 MG TAB ONE (15:58)
[2022-05-15 17:48] VITALS: BP 110/70
[2022-05-15 18:07] LABS: Hematocrit 38.8 % (30.3-42.9); Hemoglobin 12.8 gm/dl (10.1-14.3); Mean Corpuscular HGB Conc 33 % (30-34); Mean Corpuscular Volume 90 fl (79-97); Red Blood Count 4.29 M/mm3 (3.65-5.03); Red Cell Distribution Width 16.5 % (13.2-15.2)
[2022-05-15 18:08] LABS: Platelet Count 87 K/mm3 (140-440)
[2022-05-15 18:19] LABS: Calcium Oxalate Crystals,Urine FEW; Mucus,Urine 3+ /HPF
[2022-05-15 18:32] LABS: Bilirubin,Urine Negative (Negative); Blood,Urine Negative (Negative); Color,Urine Yellow (Yellow)
[2022-05-15 18:33] LABS: Urobilinogen,Urine < 2.0 mg/dL (<2.0)
[2022-05-15 19:26] LABS: Alanine Aminotransferase 10 units/L (7-56); Uric Acid 2.8 mg/dL (3.5-7.6)
== END 2022-05-15 20:01 | disposition home or self-care (01) ==
LOC: APU 13:59 → TRG 13:59
PROVIDERS: ATTEND Obstetrics & Gynecology
DX: O26.893 Other specified pregnancy related conditions, third trimester (principal); R51.9 Headache, unspecified; R42 Dizziness and giddiness; Z3A.36 36 weeks gestation of pregnancy
CPT/HCPCS: 36415; 81001; 82565; 83615; 84450; 84460; 84550; 85027

== ENCOUNTER 2022-05-22 14:35 | Outpatient (CLI) | payer MEDICAID ==
[2022-05-22 16:30] LABS: Bilirubin,Urine NEG (Negative); Blood,Urine SM (Negative); Color,Urine Yellow (Yellow); Protein,Urine <15 mg/dL mg/dL (Negative); Urobilinogen,Urine < 2.0 mg/dL (<2.0)
[2022-05-22 16:31] LABS: Mucus,Urine 1+ /HPF
[2022-05-22 16:45] LABS: Hematocrit 42.6 % (30.3-42.9); Hemoglobin 13.5 gm/dl (10.1-14.3); Mean Corpuscular HGB Conc 32 % (30-34); Mean Corpuscular Volume 91 fl (79-97); Platelet Count 104 K/mm3 (140-440); Red Blood Count 4.68 M/mm3 (3.65-5.03); Red Cell Distribution Width 16.5 % (13.2-15.2)
[2022-05-22 16:52] LABS: Alanine Aminotransferase 13 units/L (7-56)
[2022-05-22] MEDS ORDERED: ACETAMINOPHEN 325 MG TAB PO SCH (18:11)
--- NOTE | 2022-05-22 19:00 | Ultrasound Report ---
Limited OB ultrasound INDICATION: Headaches and dizziness FINDINGS: Single live intrauterine comparison breech presentation. heart rate 1 66 bpm. Placent a grade 0. No abruption is identified. IMPRESSION: No abruption is identified. Biophysical profile INDICATION: Dizziness FINDINGS: Biophysical profile measures 8 out of 8. heart rate is 144 IMPRESSION: Normal biophysical profile. Signer Name: Henry Vazquez MD Signed: 05/22/2022 6:55 PM Workstation Name: [id number]
[2022-05-22 19:58] LABS: Alanine Aminotransferase 9 units/L (7-56); Albumin 3.9 g/dL (3.9-5); Blood Urea Nitrogen 6 mg/dL (7-17); Hemolysis Index 69
[2022-05-22 20:02] LABS: BUN/Creatinine Ratio 12
[2022-05-22 20:03] LABS: Amphetamine Screen,Urine Negative; Benzodiazepines Screen,Urine Negative; Cannabinoid Screen,Urine Negative; Cocaine Screen,Urine Negative; Methadone Screen,Urine Negative; Opiate Screen,Urine Negative
[2022-05-22 20:05] LABS: Hematocrit 39.9 % (30.3-42.9); Hemoglobin 13.2 gm/dl (10.1-14.3); Mean Corpuscular HGB Conc 33 % (30-34); Mean Corpuscular Volume 90 fl (79-97); Red Blood Count 4.45 M/mm3 (3.65-5.03); Red Cell Distribution Width 16.5 % (13.2-15.2)
[2022-05-22 20:13] LABS: Platelet Count 99 K/mm3 (140-440)
[2022-05-22] MEDS ORDERED: LACTATED RINGERS 1,000 ML IV SCH ×2 (20:30→21:15)
[2022-05-22] MEDS ORDERED: AMPICILLIN/NS 2 GM/100 ML 2 GM/100 ML BAG IV ONE (22:00)
[2022-05-23] MEDS: AMPICILLIN/NS 1 GM/50 ML 1 GM/50 ML BAG IV SCH ×4 (02:27→15:46)
[2022-05-23] MEDS: ACETAMINOPHEN 325 MG TAB PO PRN ×2 (07:00→15:47)
--- NOTE | 2022-05-23 09:01 | History and Physical Report ---
History of Present Illness Date of examination: 05/23/22 Date of admission: 05/22/22 Chief complaint: Severe and recurring headaches 2 months. History of present illness: . 37+4 wks. JUAN ANTONIO 06/09/22. Breech presentation as per [facility]. Headaches recurs after fleeting relief from extra strength tylenol. Past History Past Medical History: no pertinent history - Obstetrical History Expected Date of Delivery: 06/09/22 Actual Gestation: 37 Week(s) 4 Day(s) : 3 Para: 0 Spontaneous Abortions: 2 Medications and Allergies Allergies Allergy/AdvReac Type Severity Reaction Status Date / Time cat dander Allergy Unknown Verified 04/24/22 14:44 dog dander Allergy Unknown Verified 04/24/22 14:44 soy Allergy Unknown Verified 04/24/22 14:44 strawberry Allergy Unknown Verified 04/24/22 14:44 Home Medications Medication Instructions Recorded Confirmed Last Taken Type Vit-Fe Fumar-FA [ 1 tab PO QDAY #30 tablet 09/22/19 04/24/22 04/24/22 09:00 Rx Vitamin] Active Meds: Active Medications Acetaminophen (Acetaminophen 325 Mg Tab) 650 mg PO Q4H PRN PRN Reason: Pain MILD(1-3)/Fever >100.5/VALDEZ Last Admin: 05/23/22 07:00 Dose: 650 mg Lactated Ringer's (Lactated Ringers) 1,000 mls @ 999 mls/hr IV DIRECT TANMAY Last Admin: 05/22/22 19:39 Dose: 999 mls/hr Ampicillin Sodium (Ampicillin/Ns 1 Gm/50 Ml) 1 gm in 50 mls @ 100 mls/hr IV Q4H TANMAY; Protocol Last Admin: 05/23/22 06:21 Dose: 100 mls/hr Lactated Ringer's (Lactated Ringers) 1,000 mls @ 125 mls/hr IV DIRECT TANMAY Last Admin: 05/22/22 23:43 Dose: 125 mls/hr Review of Systems All systems: negative Cardiovascular: lightheadedness, no chest pain Respiratory: no cough, no shortness of breath Gastrointestinal: no abdominal pain Neurological: headaches, double vision - Vital Signs Vital signs: Vital Signs Temp Pulse Resp BP Pulse Ox 98.2 F 89 18 122/73 99 05/22/22 15:45 05/22/22 15:45 05/22/22 15:45 05/22/22 15:45 05/22/22 15:45 Temp Pulse Resp BP Pulse Ox 98.2 F 89 18 99/57 100 05/22/22 15:45 05/23/22 08:51 05/22/22 15:45 05/23/22 06:22 05/23/22 08:51 - Physical Exam Breasts: Positive: deferred Cardiovascular: Normal S1, Normal S2 Lungs: Positive: Normal air movement Abdomen: Positive: normal appearance, soft, distention. Negative: tenderness Uterus: Positive: enlarged, normal contour Extremities: Positive: normal Deep Tendon Reflex Grade: Normal +2 - Obstetrical FHR: category 1 Uterine Contraction Pattern: Absent Results Result Diagrams: 05/22/22 19:16 05/22/22 19:16 Abnormal lab results 05/22/22 05/22/22 05/22/22 Range/Units 04:05 04:05 19:16 RDW 16.5 H 16.5 H (13.2-15.2) % Plt Count 104 L 99 L (140-440) K/mm3 Sodium (137-145) mmol/L Carbon Dioxide (22-30) mmol/L BUN (7-17) mg/dL Creatinine 0.5 L (0.6-1.2) mg/dL Uric Acid 3.0 L (3.5-7.6) mg/dL Alkaline Phosphatase (35-129) units/L Lactate Dehydrogenase 196 H (91-180) units/L 05/22/22 Range/Units 19:16 RDW (13.2-15.2) % Plt Count (140-440) K/mm3 Sodium 135 L (137-145) mmol/L Carbon Dioxide 20 L (22-30) mmol/L BUN 6 L (7-17) mg/dL Creatinine 0.5 L (0.6-1.2) mg/dL Uric Acid (3.5-7.6) mg/dL Alkaline Phosphatase 171 H (35-129) units/L Lactate Dehydrogenase (91-180) units/L All other labs normal. Assessment and Plan - Patient Problems (1) with 37 weeks completed gestation Current Visit: Yes Status: Acute Plan to address problem: Continuation or not of will be discussed with MFM. (2) Breech presentation Current Visit: Yes Status: Acute (3) Chronic headaches Current Visit: Yes Status: Acute Plan to address problem: Will seek review by neurology and MFM urgently.
--- NOTE | 2022-05-23 12:44 | Consultation ---
History of Present Illness Consult date: 05/23/22 Past History Past Medical History: no pertinent history - Obstetrical History : 3 Medications and Allergies Allergies Allergy/AdvReac Type Severity Reaction Status Date / Time cat dander Allergy Unknown Verified 04/24/22 14:44 dog dander Allergy Unknown Verified 04/24/22 14:44 soy Allergy Unknown Verified 04/24/22 14:44 strawberry Allergy Unknown Verified 04/24/22 14:44 Home Medications Medication Instructions Recorded Confirmed Last Taken Type Vit-Fe Fumar-FA [ 1 tab PO QDAY #30 tablet 09/22/19 04/24/22 04/24/22 09:00 Rx Vitamin] Active Meds: Active Medications Acetaminophen (Acetaminophen 325 Mg Tab) 650 mg PO Q4H PRN PRN Reason: Pain MILD(1-3)/Fever >100.5/VALDEZ Last Admin: 05/23/22 07:00 Dose: 650 mg Lactated Ringer's (Lactated Ringers) 1,000 mls @ 999 mls/hr IV DIRECT TANMAY Last Admin: 05/22/22 19:39 Dose: 999 mls/hr Ampicillin Sodium (Ampicillin/Ns 1 Gm/50 Ml) 1 gm in 50 mls @ 100 mls/hr IV Q4H TANMAY; Protocol Last Admin: 05/23/22 10:39 Dose: 100 mls/hr Lactated Ringer's (Lactated Ringers) 1,000 mls @ 125 mls/hr IV DIRECT TANMAY Last Admin: 05/22/22 23:43 Dose: 125 mls/hr - Vital Signs Vital signs: Vital Signs Temp Pulse Resp BP Pulse Ox 98.2 F 89 18 122/73 99 05/22/22 15:45 05/22/22 15:45 05/22/22 15:45 05/22/22 15:45 05/22/22 15:45 Temp Pulse Resp BP Pulse Ox 98.3 F 111 H 16 90/54 99 05/23/22 10:24 05/23/22 12:33 05/23/22 10:24 05/23/22 10:19 05/23/22 12:33 Results Result Diagrams: 05/22/22 19:16 05/22/22 19:16 Abnormal lab results 05/22/22 05/22/22 05/22/22 Range/Units 04:05 04:05 19:16 RDW 16.5 H 16.5 H (13.2-15.2) % Plt Count 104 L 99 L (140-440) K/mm3 Sodium (137-145) mmol/L Carbon Dioxide (22-30) mmol/L BUN (7-17) mg/dL Creatinine 0.5 L (0.6-1.2) mg/dL Uric Acid 3.0 L (3.5-7.6) mg/dL Alkaline Phosphatase (35-129) units/L Lactate Dehydrogenase 196 H (91-180) units/L 05/22/22 Range/Units 19:16 RDW (13.2-15.2) % Plt Count (140-440) K/mm3 Sodium 135 L (137-145) mmol/L Carbon Dioxide 20 L (22-30) mmol/L BUN 6 L (7-17) mg/dL Creatinine 0.5 L (0.6-1.2) mg/dL Uric Acid (3.5-7.6) mg/dL Alkaline Phosphatase 171 H (35-129) units/L Lactate Dehydrogenase (91-180) units/L All other labs normal. Ultrasound: report reviewed Assessment and Plan [facility] to follow 21 yo at 37 4/7 weeks gestation EDC 06/09 admitted secondary to a VALDEZ She reports that they began in the second trimester and have worsened Denied visual changes, CP, RUQ pain, contractions, bleeding LOF She reports that the VALDEZ is currently an 07/05 PE: 98.3 HR 94 BP 90/54 ( 90-122/54-73mmhg ) sitting up in bed using cellphone, A&O , does not appear uncomfortable FHT cat I ext no c/c/e Labs: 05/22 Plt 99 Cr 0.5 AST 21 ALT 19 UDS neg US SIUP breech FHR 166bpm BPP 07/03 A; 1. IUP at 37 4/7 weeks gestation 2. VALDEZ 3. Gestational Thrombocytopenia 4. Breech Rec: Pt remains normotensive ,There is no evidence of pre-eclampsia There is no obstetric indication for delivery at this time Neurology consultation is recommended Fiorecet can be used PRN Home once cleared by neurology Finding of gestational thrombocytopenia was discussed. Advised that the risk of hemorrhage is not increased if the plt count remains >50,000. She was advised that she may not be a candidate for regional anesthesia if the plt count remains <100,000 . Consultation with anesthesiology is advised Outpt Hematology consult is recommended CS is recommended at the time of delivery if the fetus remains breech
[2022-05-23 15:58] VITALS: BP 124/60
[2022-05-23] MEDS ORDERED: BUTALB/ACETAMINOPHEN/CAFFEINE TAB PO PRN (17:00)
--- NOTE | 2022-05-23 18:02 | Cat Scan Report ---
CT BRAIN: 05/23/2022 INDICATION / CLINICAL INFORMATION: headache. COMPARISON: None available. FINDINGS: BRAIN/INTRACRANIAL STRUCTURES: Unenhanced CT images of the brain demonstrate no evidence of acute abn ormality. Ventricles and sulci are normal in size and shape. There is no evidence of ischemic injury, hemorrhage, or mass. There are no abnormal extra-axial fluid collections. EXTRACRANIAL STRUCTURES: Unremarkable. IMPRESSION: Negative unenhanced CT of the brain. All CT scans at this location are performed using dose reduction to ALARA by means of automated expos ure control. Signer Name: Sincere Barraza MD Signed: 05/23/2022 5:58 PM Workstation Name: [id number]
--- NOTE | 2022-05-23 19:16 | Consultation ---
History of Present Illness - Reason for Consult Consult date: 05/23/22 Medical management Requesting physician: ALEXANDRU GAN - History of Present Illness . 37+4 wks. JUAN ANTONIO 06/09/22. Breech presentation as per [facility] US. Headaches recurs after fleeting relief from extra strength tylenol. Recurrent headache since 2 days Past History Past Medical History: No medical history Past Surgical History: No surgical history Social history: lives with family, full code Family history: no significant family history Medications and Allergies Allergies Allergy/AdvReac Type Severity Reaction Status Date / Time cat dander Allergy Unknown Verified 04/24/22 14:44 dog dander Allergy Unknown Verified 04/24/22 14:44 soy Allergy Unknown Verified 04/24/22 14:44 strawberry Allergy Unknown Verified 04/24/22 14:44 Home Medications Medication Instructions Recorded Confirmed Last Taken Type Vit-Fe Fumar-FA [ 1 tab PO QDAY #30 tablet 09/22/19 04/24/22 04/24/22 09:00 Rx Vitamin] Review of Systems All systems: negative Constitutional: chronic headaches Exam - Constitutional Vitals: Temp Pulse Resp BP Pulse Ox 98.2 F 97 H 16 124/60 100 05/23/22 15:37 05/23/22 15:57 05/23/22 15:37 05/23/22 15:57 05/23/22 15:56 General appearance: Present: no acute distress, well-nourished - EENT Eyes: Present: PERRL ENT: hearing intact, clear oral mucosa - Neck Neck: Present: supple, normal ROM - Respiratory Respiratory effort: normal Respiratory: bilateral: CTA - Cardiovascular Heart rate: 78 Rhythm: regular Heart Sounds: Present: S1 & S2. Absent: rub, click - Extremities Extremities: no ischemia, pulses intact, pulses symmetrical, No edema Peripheral Pulses: within normal limits - Abdominal General gastrointestinal: Present: soft, non-tender, non-distended, normal bowel sounds Female genitourinary: Present: normal - Integumentary Integumentary: Present: clear, warm, dry - Musculoskeletal Musculoskeletal: gait normal, strength equal bilaterally - Psychiatric Psychiatric: appropriate mood/affect, intact judgment & insight - Neurologic Neurologic: CNII-XII intact, moves all extremities Results - Labs CBC & Chem 7: 05/22/22 19:16 05/22/22 19:16 Labs: Abnormal lab results 05/22/22 05/22/22 Range/Units 19:16 19:16 RDW 16.5 H (13.2-15.2) % Plt Count 99 L (140-440) K/mm3 Sodium 135 L (137-145) mmol/L Carbon Dioxide 20 L (22-30) mmol/L BUN 6 L (7-17) mg/dL Creatinine 0.5 L (0.6-1.2) mg/dL Alkaline Phosphatase 171 H (35-129) units/L Short CBC 05/22/22 Range/Units 19:16 WBC 11.0 (4.5-11.0) K/mm3 Hgb 13.2 (10.1-14.3) gm/dl Hct 39.9 (30.3-42.9) % Plt Count 99 L (140-440) K/mm3 BMP 05/22/22 19:16 Sodium 135 L Potassium 4.4 Chloride 102.6 Carbon Dioxide 20 L BUN 6 L Creatinine 0.5 L Glucose 81 Calcium 10.0 Liver Function 05/22/22 Range/Units 19:16 Total Bilirubin 0.30 (0.1-1.2) mg/dL AST 21 (5-40) units/L ALT 9 (7-56) units/L Alkaline Phosphatase 171 H (35-129) units/L Albumin 3.9 (3.9-5) g/dL - Imaging and Cardiology CT Scan - head: report reviewed (No acute findings) Assessment and Plan - Patient Problems (1) Tension headache Status: Acute Plan to address problem: Fioricet every 4 hours as needed Safe in CT head is negative Patient is medically cleared to go home Tylenol as 650 every 4 as needed for headaches
== END 2022-05-23 18:23 | disposition home or self-care (01) ==
LOC: TRG 14:35 → APU 14:39 → LD 23:47 → TRG 05-23 18:23
PROVIDERS: ATTEND Obstetrics & Gynecology
DX: O26.893 Other specified pregnancy related conditions, third trimester (principal); G89.29 Other chronic pain; R51.9 Headache, unspecified; R42 Dizziness and giddiness; O32.1XX0 Maternal care for breech presentation, not applicable or unspecified; Z3A.37 37 weeks gestation of pregnancy
CPT/HCPCS: 36415; 70450; 76815; 76819; 80053; 80307; 81001; 82565; 83615; 84450; 84460; 84550; 85027; 86850; 86900; 86901; 87086; 87116; 96361; 96365; 96366; J0290; J7120

== ENCOUNTER 2022-06-05 04:51 | Inpatient (IN) | payer MEDICAID ==
[2022-06-01 13:20] LABS: Hematocrit 41.8 % (30.3-42.9); Hemoglobin 13.5 gm/dl (10.1-14.3); Mean Corpuscular HGB Conc 32 % (30-34); Mean Corpuscular Volume 90 fl (79-97); Red Blood Count 4.65 M/mm3 (3.65-5.03); Red Cell Distribution Width 16.3 % (13.2-15.2)
[2022-06-01 13:27] LABS: Platelet Count 90 K/mm3 (140-440)
[2022-06-05] MEDS ORDERED: METOCLOPRAMIDE 10 MG/2 ML INJ IV ONE (05:17)
[2022-06-05] MEDS ORDERED: FAMOTIDINE 20 MG/2 ML INJ IV ONE (05:17)
[2022-06-05] MEDS ORDERED: BICITRA ORAL LIQD 30ML PO ONE (05:17)
[2022-06-05] MEDS ORDERED: LACTATED RINGERS 1,000 ML IV SCH ×2 (05:30→07:00)
[2022-06-05] MEDS ORDERED: ceFAZolin/Water 2 GM/20 ML 2 GM/20 ML SYRINGE IV NR (06:00)
[2022-06-05] MEDS ORDERED: OXYTOCIN DRIP 30 UNITS/500 ML BAG IV SCH ×3 (06:00→07:00)
[2022-06-05 06:09] LABS: Hematocrit 40.9 % (30.3-42.9); Hemoglobin 13.7 gm/dl (10.1-14.3); Mean Corpuscular HGB Conc 34 % (30-34); Mean Corpuscular Volume 89 fl (79-97); Red Blood Count 4.62 M/mm3 (3.65-5.03); Red Cell Distribution Width 16.2 % (13.2-15.2)
[2022-06-05 06:13] LABS: Platelet Count 93 K/mm3 (140-440)
--- NOTE | 2022-06-05 06:32 | History and Physical Report ---
History of Present Illness Date of examination: 06/05/22 Date of admission: 06/05/22 04:51 Chief complaint: Here for a delivery for breech presentation. Bedside ultrasound revealed fetus to be in cephalic presentation now. Antonella q3mins. History of present illness: . JUAN ANTONIO 06/09/2022. 39+3 wks. Here for a delivery for breech presentation. Bedside ultrasound revealed fetus to be in cephalic presentation now. Now antonella q3mins. Past History Past Medical History: no pertinent history Past Surgical History: no surgical history - Obstetrical History Expected Date of Delivery: 06/09/22 Actual Gestation: 39 Week(s) 3 Day(s) : 3 Medications and Allergies Allergies Allergy/AdvReac Type Severity Reaction Status Date / Time cat dander Allergy Unknown Verified 05/30/22 17:43 dog dander Allergy Unknown Verified 05/30/22 17:43 soy Allergy Unknown Verified 05/30/22 17:43 strawberry Allergy Unknown Verified 05/30/22 17:43 Home Medications Medication Instructions Recorded Confirmed Last Taken Type Vit-Fe Fumar-FA [ 1 tab PO QDAY #30 tablet 09/22/19 05/30/22 04/24/22 09:00 Rx Vitamin] Active Meds: Active Medications Lactated Ringer's (Lactated Ringers) 1,000 mls @ 2,250 mls/hr IV PREOP TANMAY Stop: 06/06/22 05:57 Oxytocin/Sodium Chloride (Pitocin/Ns 30 Unit/500ml) 30 units in 500 mls @ 0 mls/hr IV TITR TANMAY; Protocol Cefazolin Sodium (Ancef/Sterile Water 2 Gm/20 Ml) 2 gm in 20 mls @ 80 mls/hr IV PREOP NR; Protocol Stop: 06/06/22 05:59 Review of Systems All systems: negative Genitourinary: contractions - Vital Signs Vital signs: Vital Signs Temp Pulse Resp BP Pulse Ox 98.7 F 86 20 126/77 99 06/01/22 12:45 06/01/22 12:45 06/01/22 12:45 06/01/22 12:45 06/01/22 12:45 Temp Pulse Resp BP Pulse Ox 98.3 F 101 H 16 118/73 96 06/05/22 05:45 06/05/22 06:26 06/05/22 05:45 06/05/22 05:12 06/05/22 06:26 - Physical Exam Lungs: Positive: Normal air movement Abdomen: Positive: normal appearance, distention, normal bowel sounds Genitourinary (Female): Positive: normal external genitalia Vulva: both: normal Vagina: Positive: normal moisture. Negative: discharge Cervix: Negative: lesion, discharge Uterus: Positive: enlarged, normal contour Anus/Rectum: Positive: normal perianal skin Extremities: Deep Tendon Reflex Grade: Normal +2 - Obstetrical FHR: category 1 Cervical Dilatation: 4 Cervical Effacement Percentage: 100 station: 0 Uterine Contraction Frequency (min): 3 Uterine Contraction Pattern: Regular Uterine Contraction Intensity: Strong/Firm Results Result Diagrams: 06/05/22 05:34 Abnormal lab results 06/05/22 Range/Units 05:34 RDW 16.2 H (13.2-15.2) % Plt Count 93 L (140-440) K/mm3 All other labs normal. Assessment and Plan - Patient Problems (1) Active labor Current Visit: Yes Status: Acute Plan to address problem: section cancelled as fetus no longer in breech. Patient admitted for the conduct of L&D. Vag delivery anticipated if all remains stable. (2) with 39 completed weeks gestation Current Visit: Yes Status: Acute
[2022-06-05] MEDS ORDERED: CARBOPROST TROMETHAMINE 250 MCG/1 ML INJ IM PRN (06:40)
[2022-06-05] MEDS ORDERED: LOPERAMIDE 2 MG CAP PO PRN (06:40)
[2022-06-05] MEDS ORDERED: AMPICILLIN/NS 2 GM/100 ML 2 GM/100 ML BAG IV ONE (06:40)
[2022-06-05] MEDS ORDERED: LIDOCAINE (2%) 20 MG/1 ML VIAL 20 ML MDV INFILTRATI NR (06:40)
[2022-06-05] MEDS ORDERED: METHYLERGONOVINE MALEATE 0.2 MG/ML VIAL IM PRN (07:00)
[2022-06-05] MEDS ORDERED: TERBUTALINE 1 MG/1 ML INJ SUB-Q PRN (07:00)
[2022-06-05] MEDS ORDERED: ONDANSETRON 4 MG/2 ML INJ IV PRN ×2 (07:00→14:29)
[2022-06-05] MEDS ORDERED: miSOPROStol 200 MCG TAB PR PRN (07:00)
[2022-06-05] MEDS ORDERED: ePHEDrine SULFATE 50 MG/1 ML INJ IV PRN ×2 (07:00→11:00)
[2022-06-05] MEDS ORDERED: ACETAMINOPHEN 325 MG TAB PO PRN ×2 (07:00→14:29)
[2022-06-05] MEDS ORDERED: OXYTOCIN 10 UNIT/1 ML INJ IM PRN (07:00)
[2022-06-05] MEDS ORDERED: NALOXONE 0.4 MG/1 ML INJ IV PRN ×2 (07:00→11:00)
[2022-06-05] MEDS ORDERED: BUTORPHANOL 2 MG/1 ML INJ IV PRN ×2 (08:00)
--- NOTE | 2022-06-05 10:45 | Progress Note ---
Labor Epidural - Labor Epidural Start Time: 10:08 Stop Time: 10:14 Performed by:: PEGGY ELLIS Procedure: Epidural Requested for Labor Pain. H&P and PT Chart reviewed and consent obtained. Time out performed and the procedure was explained, all questions answered. Patient was placed in a sitting position with monitors applied. The PTs back was prepped and draped in usual sterile fashion. The Skin was localized with 3 mL of 1% lidocaine at L3-L4. A 17-gauge Touhy epidural needle was advanced to ELVIA with saline at 7 cm and no blood/CSF was noted via epidural needle. Epidural catheter was advanced to 12 cm. There was negative aspiration for blood and CSF in the catheter and negative response to a test dose of 3 ml 1.5% lidocaine w/ Epi and a sterile dressing was applied Patient tolerated the procedure well and there were no immediate complications noted.
--- NOTE | 2022-06-05 10:46 | Anesthesia Consultation ---
Anesthesia Consult and Med Hx Date of service: 06/05/22 - Airway Anesthetic Teeth Evaluation: Good ROM Head & Neck: Adequate Mental/Hyoid Distance: Adequate Mallampati Class: Class II Intubation Access Assessment: Probably Good - Pulmonary Exam CTA: Yes - Cardiac Exam Cardiac Exam: RRR - Pre-Operative Health Status ASA Pre-Surgery Classification: ASA2 Proposed Anesthetic Plan: Epidural - Pulmonary Hx Smoking: No Hx Asthma: Yes (Last treated years ago) Hx Respiratory Symptoms: No SOB: No COPD: No Home Oxygen Therapy: No Hx Pneumonia: No Hx Sleep Apnea: No - Cardiovascular System Hx Hypertension: No Hx Coronary Artery Disease: No Hx Heart Attack/AMI: No Hx Angina: No Hx Percutaneous Transluminal Coronary Angioplasty (PTCA): No Hx Cardia Arrhythmia: No Hx Pacemaker: No Hx Internal Defibrillator: No Hx Valvular Heart Disease: No Hx Heart Murmur: No Hx Peripheral Vascular Disease: No - Central Nervous System Hx Neuromuscular Disorder: No Hx Seizures: No CVA: No Hx Back Pain: No Hx Psychiatric Problems: No - Gastrointestinal Hx Ulcer: No Hx Gastroesophageal Reflux Disease: No - Endocrine Hx Renal Disease: No Hx End Stage Renal Disease: No Hx Cirrhosis: No Hx Liver Disease: No Hx Insulin Dependent Diabetes: No Hx Non-Insulin Dependent Diabetes: No Hx Thyroid Disease: No Hx Hypothyroidism: No Hx Hyperthyroidism: No - Hematic Hx Anemia: No Hx Sickle Cell Disease: No - Other Systems Hx Alcohol Use: No Hx Substance Use: No Hx Cancer: No Hx Obesity: No
--- NOTE | 2022-06-05 10:46 | Anesthesia Day of Surgery ---
Anesthesia Day of Surgery - Day of Surgery Patient Examined: Yes Patient H&P Reviewed: Yes Patient is NPO: Yes Beta Blockers: No Cardiac Clearance: No Pulmonary Clearance: No Sincere's Test: N/A
[2022-06-05] MEDS ORDERED: fentaNYL-BUPIV 2 MCG/ML-0.125% 200 MCG/100 ML BAG EPIDURAL SCH (11:00)
[2022-06-05] MEDS ORDERED: BUPIVACAINE/PF (0.25%) 2.5 MG/ML 10 ML VIAL INFILTRATI ONE (12:02)
[2022-06-05] MEDS ORDERED: MAGNESIUM HYDROXIDE (MOM) ORAL LIQD UDC PO PRN (14:29)
[2022-06-05] MEDS ORDERED: diphenhydrAMINE 25 MG CAP PO PRN (14:29)
[2022-06-05] MEDS ORDERED: LANOLIN/ZINC/DIMETHICONE (LANSINOH) 7 GM TP PRN (14:29)
[2022-06-05] MEDS ORDERED: PROMETHAZINE 25 MG RECT SUPP PR PRN (14:29)
[2022-06-05] MEDS ORDERED: PROMETHAZINE 25 MG TAB PO PRN (14:29)
[2022-06-05] MEDS ORDERED: KETOROLAC 30 MG/1 ML INJ IV PRN (14:29)
[2022-06-05] MEDS ORDERED: WITCH HAZEL/ GLYCERIN PAD TP PRN (14:29)
[2022-06-05] MEDS ORDERED: HYDROcodone/ACETAMINOPHEN 5-325 MG TAB PO PRN (14:29)
--- NOTE | 2022-06-05 14:37 | Procedure Note ---
OB Delivery Note - Delivery Date of Delivery: 06/05/22 Die Out Worker: ALEXANDRU GAN Estimated blood loss: 300cc - Vaginal Delivery presentation: vertex Delivery position: OA Intrapartum events: none, mult.variable deceleratio Delivery induction: none Delivery augmentation: pitocin Delivery monitor: external FHT, external uterine, internal FHT, internal uterine Route of delivery: vacuum extraction ( distress, maternal exhaustion. Vacuum applied at 0+4 station/head crowned.) Indicators for instrumentation: nonreassuring FHR tracing Delivery placenta: spontaneous, expressed Delivery cord: 3 umbilical vessels Episiotomy: none Delivery laceration: 1st degree (Midline. X1 stitch) Delivery repair: vicryl Anesthesia: epidural - Infant A at 1 minute: 8 at 5 minutes: 9 Infant Gender: Female (6 pounds 5 ounces.)
[2022-06-05] MEDS: IBUPROFEN 800 MG TAB PO SCH ×2 (17:21→23:57)
[2022-06-05] MEDS ORDERED: MINERAL OIL 30 ML ORAL LIQD PO PRN (22:00)
[2022-06-05] MEDS: DOCUSATE SODIUM 100 MG CAP PO SCH (23:57)
[2022-06-06 04:18] LABS: Hematocrit 32.3 % (30.3-42.9); Hemoglobin 10.6 gm/dl (10.1-14.3)
[2022-06-06] MEDS: IBUPROFEN 800 MG TAB PO SCH ×2 (05:46→14:53)
[2022-06-06] MEDS ORDERED: PRENATAL VIT27-FE FUMARATE-FOLIC ACID VIT TAB PO SCH (10:00)
--- NOTE | 2022-06-06 12:20 | Progress Note ---
Assessment and Plan - Patient Problems (1) Active labor Current Visit: Yes Status: Resolved (2) with 39 completed weeks gestation Current Visit: Yes Status: Resolved (3) Status post vaginal delivery Current Visit: Yes Status: Acute Plan to address problem: Stable and may go home later today. Subjective - Subjective Date of service: 06/06/22 Principal diagnosis: Status post vaginal delivery day 1 Interval history: . JUAN ANTONIO 06/09/2022. 39+3 wks. Here for a delivery for breech presentation. Bedside ultrasound revealed fetus to be in cephalic presentation now. Now antonella q3mins. 06/06/2022 Day 1 post vaginal delivery. No complaints and requested to go home today. Patient reports: appetite normal, voiding normally, pain well controlled, ambulating normally : doing well Objective - Vital Signs Latest vital signs: Vital Signs Temp Pulse Resp BP BP Pulse Ox Pulse Ox 06/06/22 08:25 98.2 F 72 20 114/77 100 06/06/22 08:17 98 06/06/22 05:45 98 06/06/22 04:25 98 06/06/22 01:25 98 06/06/22 01:07 98.1 F 99 H 20 103/65 96 06/05/22 23:56 98 06/05/22 22:25 98 06/05/22 20:49 98.1 F 73 20 117/73 98 06/05/22 20:20 98 06/05/22 17:13 98.1 F 06/05/22 16:10 98 06/05/22 16:05 98.1 F 83 18 100/54 99 06/05/22 14:46 74 117/63 06/05/22 14:31 72 114/64 06/05/22 14:16 71 113/61 06/05/22 14:05 77 93 06/05/22 14:01 78 121/67 06/05/22 14:00 78 94 06/05/22 13:51 89 06/05/22 13:48 90 116/73 06/05/22 13:46 94 06/05/22 13:27 104 H 86 06/05/22 13:18 157 H 91 06/05/22 13:08 97 H 100 06/05/22 13:03 80 100 06/05/22 12:58 111 H 99 06/05/22 12:53 92 H 100 06/05/22 12:48 80 97 06/05/22 12:28 70 133/64 06/05/22 12:27 72 97 06/05/22 12:22 67 97 06/05/22 12:19 72 88 Intake and Output 06/05/22 06/06/22 06/06/22 23:59 07:59 15:59 Intake Total 360 320 Balance 360 320 Intake: Oral 320 Intake, Free Water 360 Other: Total, Intake Amount 320 # Voids Void 2 - Exam Lungs: Present: Normal air movement Abdomen: Present: normal appearance, soft Uterus: Present: normal, firm Extremities: Present: normal Deep Tendon Reflex Grade: Normal +2
--- NOTE | 2022-06-06 12:30 | Discharge Summary ---
Providers - Providers Date of Admission: 06/05/22 04:51 Date of discharge: 06/06/22 Attending physician: ALEXANDRU GAN MD Primary care physician: ALEXANDRU GAN MD Hospitalization Reason for admission: active labor, IUP at term Delivery: vacuum extraction Episiotomy: none Laceration: 1st degree (midline) Other procedures: none complications: none Discharge diagnosis: IUP at term delivered baby: female Condition at discharge: Good Disposition: 01 HOME / SELF CARE / HOMELESS - Discharge Diagnoses (1) Active labor Status: Resolved (2) with 39 completed weeks gestation Status: Resolved (3) Status post vaginal delivery Status: Acute Plan - Provider Discharge Summary Activity: routine, no sex for 6 weeks, no heavy lifting 4 weeks, no strenuous exercise Diet: routine Instructions: routine Additional instructions: [] Smoking cessation referral if applicable(refer to patient education folder for contact #) [] Refer to [facility] Booklet Call your doctor immediately for: * Fever > 100.5 * Heavy vaginal bleeding ( >1 pad per hour) * Severe persistent headache * Shortness of breath * Reddened, hot, painful area to leg or breast * Drainage or odor from incision. * Keep incision clean and dry at all times and follow doctor's instructions regarding bathing/showering - Follow up plan Follow up: ALEXANDRU GAN MD [Primary Care Provider] - 7 Days Forms: [facility] Discharge Summary
[2022-06-06] MEDS: DOCUSATE SODIUM 100 MG CAP PO SCH (14:54)
[2022-06-06 16:10] VITALS: BP 114/72
--- NOTE | 2022-06-06 16:23 | Post Anesthesia Evaluation ---
- Post Anesthesia Evaluation Patient Participated: Yes Airway Patent: Yes Stable Respiratory Function: Yes Nausea/Vomiting: No Temp > 96.8F: Yes Pain Manageable: Yes Adequeate Hydration: Yes Anesthesia Complications: No Block Receding Appropriately: Yes Patient on Ventilator: Yes
== END 2022-06-06 16:15 | disposition home or self-care (01) | DRG 775 ==
LOC: APU 04:51 → LD 07:41 → OB 15:52
PROVIDERS: ADMIT Obstetrics & Gynecology; ATTEND Obstetrics & Gynecology
PROC: 10D07Z6 Extraction of Products of Conception, Vacuum, Via Natural or Artificial Opening (ICD-10-PCS; principal; 2022-06-05)
PROC: 0HQ9XZZ Repair Perineum Skin, External Approach (ICD-10-PCS; 2022-06-05)
PROC: 3E0R3BZ Introduction of Anesthetic Agent into Spinal Canal, Percutaneous Approach (ICD-10-PCS; 2022-06-05)
PROC: 00HU33Z Insertion of Infusion Device into Spinal Canal, Percutaneous Approach (ICD-10-PCS; 2022-06-05)
DX: O76 Abnormality in fetal heart rate and rhythm complicating labor and delivery (principal); Z3A.39 39 weeks gestation of pregnancy; Z20.822 Contact with and (suspected) exposure to COVID-19; Z37.0 Single live birth; O99.52 Diseases of the respiratory system complicating childbirth; J45.909 Unspecified asthma, uncomplicated; Z91.048 Other nonmedicinal substance allergy status; Z91.018 Allergy to other foods; Z91.09 Other allergy status, other than to drugs and biological substances; O70.0 First degree perineal laceration during delivery
CPT/HCPCS: 36415; 85014; 85018; 85027; 86592; 86850; 86900; 86901; 99211; G0378; J3490; G0463; J0290; J0595; J2590; J7120; U0003